=== PATIENT | female | born 1950 | race Caucasian/White ===

== ENCOUNTER → 2017-01-17 | Outpatient (CLI) | payer MEDICARE, OTHER ==
[~2017-01-17] MED LIST: ESOM40CA PO; FISH400C3 PO; GLUC-121 PO; LACT1CAP37 PO; LEVO50TA5 PO; MULT-709 PO; TURM1POW2 PO
== END | disposition home or self-care (01) ==
LOC: CFH 13:15
PROVIDERS: ATTEND Family Medicine
DX: R92.1 Mammographic calcification found on diagnostic imaging of breast (principal)
CPT/HCPCS: G0206

== ENCOUNTER → 2017-09-11 | Outpatient (CLI) | payer MEDICARE, OTHER | END | disposition home or self-care (01) | LOC: CFH 13:58 | PROVIDERS: ATTEND Licensed Practical Nurse | DX: Z12.31 Encounter for screening mammogram for malignant neoplasm of breast (principal) | CPT/HCPCS: G0202 ==

== ENCOUNTER 2018-07-07 14:24 | Emergency (ER) | payer MEDICARE, OTHER ==
[~2018-07-07] VITALS: Ht 160 cm; Wt 63.8 kg
[2018-07-07 14:52] VITALS: BP 133/84
[2018-07-07] MEDS ORDERED: FAMOTIDINE 20 MG TABLET PO ONE (15:00)
[2018-07-07] MEDS ORDERED: FAMOTIDINE 20 MG TABLET ONE (15:26)
== END 2018-07-07 15:44 | disposition home or self-care (01) ==
LOC: ED 15:00
DX: T80.62XA Other serum reaction due to vaccination, initial encounter (principal); J98.01 Acute bronchospasm
CPT/HCPCS: 99283; J7512

== ENCOUNTER → 2018-08-10 | Outpatient (CLI) | payer MEDICARE | END | disposition home or self-care (01) | LOC: CFH 06:58 | PROVIDERS: ATTEND Physician Assistant | DX: M75.121 Complete rotator cuff tear or rupture of right shoulder, not specified as traumatic (principal) ==

== ENCOUNTER 2020-10-26 10:02 | Outpatient (CLI) | payer MEDICARE | END 2020-10-26 23:59 | disposition home or self-care (01) | LOC: CFH 10:02 → EDSTATUS 10:15 → CFH 23:59 | PROVIDERS: ATTEND Physician Assistant | DX: Z12.31 Encounter for screening mammogram for malignant neoplasm of breast (principal); Z13.820 Encounter for screening for osteoporosis; N95.9 Unspecified menopausal and perimenopausal disorder | CPT/HCPCS: 77063; 77067; 77080 ==